=== PATIENT | female | born 1935 | race Caucasian/White ===

== ENCOUNTER 2018-04-21 02:47 | Emergency (ER) | payer MEDICARE, OTHER ==
--- NOTE | 2018-04-21 03:30 | ER Document Report ---
ED Hip Pain/Injury - General Stated Complaint: FALL Time Seen by Provider: 04/21/18 03:06 Mode of Arrival: Medic Information source: Patient, Relative, POA - Power of Lopper Cannot obtain history due to: Uncooperative - HPI Patient complains to provider of: Other - 82-year-old female with a history of COPD as well as anxiety on inhalers as well as blood pressure medication cholesterol medication and Ambien that presents for evaluation of a an unwitnessed fall at home at which time she fell onto her left side attempted to get up for some time and thereafter pressed her life alert button. She currently states that her leg hurts has no other complaints at this time. - Related Data Allergies/Adverse Reactions: No Known Allergies Allergy (Unverified 04/21/18 03:14) Past Medical History - General Information source: Patient, Emergency Med Personnel - Social History Smoking Status: Current Every Day Smoker Cigarette use (# per day): Yes Chew tobacco use (# tins/day): No Smoking Education Provided: Yes Frequency of alcohol use: None Drug Abuse: None Lives with: Alone Family History: None Review of Systems - Review of Systems -: Yes All other systems reviewed and negative Physical Exam - Vital signs Vitals: Pulse Ox 93 04/21/18 02:53 - General General appearance: Alert, Anxious In distress: Mild - HEENT Head: Normocephalic Eyes: Normal Conjunctiva: Normal Cornea: Normal Extraocular movements intact: Yes Eyelashes: Normal Pupils: PERRL - Respiratory Respiratory status: Tachypnea Chest status: Nontender Breath sounds: Normal Chest palpation: Normal - Cardiovascular Rhythm: Tachycardia Heart sounds: Normal auscultation Murmur: No - Abdominal Inspection: Normal Distension: No distension Tenderness: Nontender - Back Back: Normal - Extremities General upper extremity: Normal inspection, Nontender, Normal strength, Normal temperature General lower extremity: Other - The left lower extremity is slightly internally rotated and shortened in comparison to the right Profound tenderness in the left hip and pelvis - Neurological Neuro grossly intact: Yes Cognition: Confused Orientation: Disoriented to events Irina Coma Scale Eye Opening: Spontaneous Council Coma Scale Verbal: Oriented Council Coma Scale Motor: Obeys Commands Irina Coma Scale Total: 15 Speech: Normal Cranial nerves: Normal Cerebellar coordination: Normal Motor strength normal: LUE, RUE, RLE - Psychological Associated symptoms: Other - Diminished insight Course - Re-evaluation Re-evalutation: A 82-year-old who presents status post a fall unwitnessed at home states that she slipped on a rug. Examination she is got tenderness over the left hip and marked pain with logrolling. We will obtain x-ray of the pelvis, will obtain broad labs including CBC, type and screen, coags, EKG, troponin. X-ray does demonstrate that the patient has a left-sided intertrochanteric hip fracture. She does have a market leukocytosis possibly as a result of demargination possibly as a result of an undiagnosed infectious process. We will broaden workup including urinary culture and chest x-ray. Spoke to the on-call orthopedic surgeon Dr. segovia he notes that he will see the patient as necessary in the inpatient setting. EKG demonstrates left bundle branch block without any previous to compare to. Her troponin resulted at 5.2 approximately. Reassessed the patient, she is been on radiation monitor during this time without any obvious episodes of ectopy or ventricular tachycardia or fibrillation. She currently denies any complaints though she does demonstrate slight hypoxia and a new oxygen requirement of 2 L. Because the concern for both her hip fracture and now probable type II end STEMI we will repeat her EKG, will repeat her troponin. Have contacted [facility] as well as the patient's daughter who notes that at this time she is a DNR and DNI. She would prefer that her mother be taken care of by her previous orthopedist as well as a higher level of care at [facility]. Have contacted on-call center and will await callback for potential cardiology or medicine evaluation accepting of transfer. Spoke to on-call hospitalist resident Dr. Leo, she defers to cardiology at this time for concern of potential STEMI equivalent. Spoke to on-call PA for cardiology at [facility] [place] who notes that the patient previously had a left bundle branch block. At this time her second troponin is resulted, this patient's troponin is now downtrending. She continues to be chest pain-free on reassessment. Because of her well appearance in regards to potential STEMI do not believe that this is the case likely this is a type II end STEMI as a result of her hip fracture and fall. Have deferred anticoagulation at the moment given her hip fracture and potential surgical intervention. 11/19/18 06:[address] Nguyen again, she agrees to accept this patient in transfer to cardiology bed and rapid transport. We will initiate heparin infusion for this patient administer aspirin. We will defer administration of Plavix. We will plan for continued monitoring in emergency department until appropriate transport. - Vital Signs Vital signs: Temp Pulse Resp BP Pulse Ox 98.3 F 19 140/75 H 96 04/21/18 05:20 04/21/18 04:01 04/21/18 04:00 04/21/18 04:01 - Laboratory Result Diagrams: 04/21/18 04:00 04/21/18 04:00 Laboratory results interpreted by me: 04/21/18 04/21/18 04/21/18 04:00 04:00 04:09 WBC 27.9 H RBC 5.30 H MCH 26.1 L RDW 15.5 H Seg Neuts % (Manual) 82 H Lymphocytes % (Manual) 12 L Abs Neuts (Manual) 22.9 H Abs Monocytes (Manual) 1.7 H Glucose 218 H AST 74 H Urine Glucose (UA) 50 H Urine Urobilinogen 2.0 H Critical Care Note - Critical Care Note Total time excluding time spent on procedures (mins): 60 Discharge - Discharge Clinical Impression: NSTEMI (non-ST elevated myocardial infarction), Troponin I above reference range Hip fracture Qualifiers: Encounter type: initial encounter Fracture type: closed Laterality: left Qualified Code(s): S72.002A - Fracture of unspecified part of neck of left femur , initial encounter for closed fracture Fall Qualifiers: Encounter type: initial encounter Qualified Code(s): W19.XXXA - Unspecified fall, initial encounter Dyspnea Qualifiers: Dyspnea type: unspecified Qualified Code(s): R06.00 - Dyspnea, unspecified Condition: Stable Disposition: [facility]
--- NOTE | 2018-04-21 03:51 | RADIOLOGY REPORT (SQ) ---
EXAM DESCRIPTION: XR HIP 2 OR MORE VIEWS COMPLETED DATE/TME: 04/21/2018 03:08 CLINICAL HISTORY: 82 years, Female, fall COMPARISON: None. NUMBER OF VIEWS: 3 TECHNIQUE: AP pelvis and 2 views of the left hip LIMITATIONS: None. FINDINGS: Osteopenia. Right hip arthroplasty changes. Vascular calcifications. Old fracture deformities of the right inferior pubic ramus. There is a mildly displaced intertrochanteric fracture deformity of the left hip. Slight medial displacement and superior displacement of the lesser trochanter fragment. No dislocation. IMPRESSION: Mildly displaced left intertrochanteric fracture deformity. 2011 [employer]- All Rights Reserved
[2018-04-21 04:14] LABS: HEMATOCRIT 42.2 % (36.0-47.0); HEMOGLOBIN 13.8 g/dL (12.0-15.5); MEAN CORPUSCULAR HEMOGLOBIN 26.1 pg (27.0-33.4); MEAN CORPUSCULAR HGB CONC 32.7 g/dL (32.0-36.0); MEAN CORPUSCULAR VOLUME 80 fl (80-97); PLATELET COUNT 270 10^3/uL (150-450); RED CELL DISTRIBUTION WIDTH 15.5 % (11.5-14.0); WHITE BLOOD COUNT 27.9 10^3/uL (4.0-10.5)
[2018-04-21 04:22] LABS: APPEARANCE,URINE CLEAR; BILIRUBIN,URINE NEGATIVE (NEGATIVE); COLOR,URINE YELLOW; GLUCOSE, URINE 50 mg/dL (NEGATIVE); KETONES,URINE NEGATIVE (NEGATIVE); LEUKOCYTE ESTERASE,URINE NEGATIVE (NEGATIVE); NITRITE,URINE NEGATIVE (NEGATIVE); PROTEIN,URINE NEGATIVE (NEGATIVE); URINE SPECIFIC GRAVITY 1.015
[2018-04-21 04:30] LABS: ABSOLUTE LYMPHOCYTES# (MANUAL) 3.3 10^3/uL (0.5-4.7); ABSOLUTE MONOCYTES # (MANUAL) 1.7 10^3/uL (0.1-1.4); ABSOLUTE NEUTROPHILS# (MANUAL) 22.9 10^3/uL (1.7-8.2); ANISOCYTOSIS 1+; BASOPHILS % (MANUAL) 0 % (0-2); EOSINOPHILS % (MANUAL) 0 % (0-6); LYMPHOCYTES % (MANUAL) 12 % (13-45); MONOCYTES % (MANUAL) 6 % (3-13); PLATELET COMMENT ADEQUATE; POLYCHROMASIA 1+; SEGMENTED NEUTROPHILS % (MAN) 82 % (42-78); TOTAL CELLS COUNTED 100
[2018-04-21 04:35] LABS: ALANINE AMINOTRANSFERASE 22 U/L (9-52); ALKALINE PHOSPHATASE 112 U/L (38-126); ANION GAP 12 (5-19); ASPARTATE AMINO TRANSFERASE 74 U/L (14-36); BILIRUBIN,DIRECT 0.4 mg/dL (0.0-0.4); BILIRUBIN,TOTAL 0.5 mg/dL (0.2-1.3); BLOOD UREA NITROGEN 15 mg/dL (7-20); CALCIUM 8.9 mg/dL (8.4-10.2); CARBON DIOXIDE 26 mmol/L (22-30); CHLORIDE 100 mmol/L (98-107); GLUCOSE 218 mg/dL (75-110); POTASSIUM 4.1 mmol/L (3.6-5.0); SODIUM 137.9 mmol/L (137-145); TOTAL PROTEIN 6.8 g/dL (6.3-8.2)
[2018-04-21 04:58] LABS: INTERNATIONAL RATION (INR) 1.03; PARTIAL THROMBOPLASTIN TIME 27.3 SEC (23.5-35.8); PROTHROMBIN TIME 14.1 SEC (11.4-15.4)
--- NOTE | 2018-04-21 05:30 | RADIOLOGY REPORT (SQ) ---
EXAM DESCRIPTION: XR CHEST 1 VIEW COMPLETED DATE/TME: 04/21/2018 04:58 CLINICAL HISTORY: 82 years, Female, leukocytosis, cough COMPARISON: None. NUMBER OF VIEWS: 1 TECHNIQUE: Frontal view the chest LIMITATIONS: None. FINDINGS: Heart size is normal. Atheromatous change thoracic aorta. Osteopenia. Underlying emphysema with biapical pleural thickening. Calcified granuloma projects over the left heart border. No pneumothorax IMPRESSION: Emphysema. No acute cardiopulmonary process. 2010 [email or web address]- All Rights Reserved
[2018-04-21] MEDS ORDERED: FENTANYL CITRATE INJ/PF 100 MCG/2 ML AMPUL IV PRN (05:51)
[2018-04-21] MEDS ORDERED: HEPARIN SOD (PORCINE) 1,000 UNIT/ML 10 ML VIAL IV ONE (06:25)
[2018-04-21] MEDS ORDERED: HEPARIN SODIUM,PORCINE/D5W 25,000 UNIT/250 ML RTUINJ IV PRN (06:25)
[2018-04-21] MEDS ORDERED: ASPIRIN 325 MG TABLET PO ONE (06:27)
--- NOTE | 2018-04-21 06:57 | EKG REPORT ---
SEVERITY:- ABNORMAL ECG - A FIB FLUTTER LEFT BUNDLE BRANCH BLOCK : Confirmed by: Casie Montes 21-Apr-2018 06:56:27
[2018-04-21 08:09] VITALS: BP 161/80
--- NOTE | 2018-04-21 08:16 | ER Document Report ---
Doctor's Note Notes: 04/21/18 08:15 Transport is currently here and available. Patient remained stable for transport at this time.
[2018-04-21] MEDS ORDERED: HEPARIN SOD (PORCINE) 1,000 UNIT/ML 10 ML VIAL IV PRN (09:27)
--- NOTE | 2018-04-22 15:45 | EKG REPORT ---
SEVERITY:- ABNORMAL ECG - ATRIAL FIBRILLATION MULTIFORM VENTRICULAR PREMATURE COMPLEXES LEFT BUNDLE BRANCH BLOCK : Confirmed by: Regina Guallpa MD 22-Apr-2018 15:45:21
== END 2018-04-21 08:28 | disposition short-term general hospital (02) ==
LOC: ER 02:47
DX: I21.4 Non-ST elevation (NSTEMI) myocardial infarction (principal); S72.002A Fracture of unspecified part of neck of left femur, initial encounter for closed fracture; M79.605 Pain in left leg; R79.89 Other specified abnormal findings of blood chemistry; R06.00 Dyspnea, unspecified; W19.XXXA Unspecified fall, initial encounter; F17.210 Nicotine dependence, cigarettes, uncomplicated; Z79.899 Other long term (current) drug therapy; J44.9 Chronic obstructive pulmonary disease, unspecified; F41.9 Anxiety disorder, unspecified
CPT/HCPCS: 93005; 96376; 99291; 51702; 96375; 96365; 86900; 86901; 36415; 86850; 85025; 85610; 85730; 80053; 81001; 84484; 71045; 73502; 93010; J1644 ×2; A9270; J3010